=== PATIENT | male | born 1995 | race Caucasian/White ===

== ENCOUNTER 2021-10-28 14:59 | Outpatient (REF) | payer OTHER, SELFPAY ==
[2021-10-28 15:39] LABS: COVID-19 Test Negative (Negative)
== END 2021-10-28 15:00 | disposition home or self-care (01) ==
LOC: HO.LAB 14:59
PROVIDERS: Visit Provider Internal Medicine
DX: Z20.822 Contact with and (suspected) exposure to COVID-19 (principal)
CPT/HCPCS: 87635; C9803

== ENCOUNTER 2021-11-03 15:32 | Outpatient (REF) | payer OTHER, SELFPAY ==
[2021-11-03 16:06] LABS: COVID-19 Test Negative (Negative)
== END 2021-11-03 15:33 | disposition home or self-care (01) ==
LOC: HO.LAB 15:32
PROVIDERS: Visit Provider Internal Medicine
DX: Z20.822 Contact with and (suspected) exposure to COVID-19 (principal)
CPT/HCPCS: 87635; C9803